=== PATIENT | female | born 1970 | race Caucasian/White ===

== ENCOUNTER 2019-06-15 06:47 | Day surgery (SDC) | payer BC ==
[2019-06-15] MEDS ORDERED: Lidocaine 1% PF 2 ML SDV INJECT ONE (07:46)
[2019-06-15] MEDS ORDERED: Lidocaine 2% 20 ML MDV INJECT ONE (08:01)
[2019-06-15] MEDS ORDERED: Lidocaine 1% with EPINEPHrine 1:100,000 50 ML MDV INJECT ONE (08:01)
[2019-06-15] MEDS ORDERED: ceFAZolin 2 GM in Sodium Chloride 0.9% 50 ML IV ONE (09:30)
[2019-06-15] MEDS ORDERED: fentaNYL 250 MCG/5 ML SDV ONE (09:34)
[2019-06-15] MEDS ORDERED: Succinylcholine 200 MG/10 ML MDV ONE (09:35)
[2019-06-15] MEDS ORDERED: Neostigmine Methylsulfate 1 MG/ML 5 ML Syringe ONE (09:35)
[2019-06-15] MEDS ORDERED: Propofol 200 MG/20 ML SDV ONE (09:35)
[2019-06-15] MEDS ORDERED: Ondansetron 4 MG/2 ML SDV ONE (09:35)
[2019-06-15] MEDS ORDERED: Rocuronium 50 MG/5 ML Vial ONE (09:35)
[2019-06-15] MEDS ORDERED: Glycopyrrolate 0.2 MG/ML 5 ML MDV ONE (09:35)
[2019-06-15] MEDS ORDERED: Lidocaine 1% 20 ML MDV INJECT ONE (10:49)
[2019-06-15] MEDS ORDERED: Isosulfan Blue 5 ML SDV ONE (11:15)
[2019-06-15] MEDS: Bupivacaine 0.5% 50 ML MDV ONE ×2 (12:04→12:50)
[2019-06-15] MEDS: Lidocaine 1% with EPINEPHrine 1:100,000 50 ML MDV ONE ×2 (12:05→12:50)
--- NOTE | 2019-06-15 12:41 | MY ---
Post Procedure Digital Lt SPECIMEN RADIOGRAPH CLINICAL HISTORY: Ductal carcinoma FINDINGS: Surgical specimen was submitted to radiology. The specimen contained the localization wire and the ultrasound biopsy marker in the central portion of the specimen. There is some spiculation identified in the central portion. This correlates with the preoperative tomosynthesis findings. IMPRESSION: Specimen contains the localization wire biopsy marker and spiculated lesion
--- NOTE | 2019-06-15 12:49 | MY ---
Guide Ndl Wire Loc LT CLINICAL HISTORY: Left breast carcinoma FINDINGS: Tomosynthesis images obtained prior to the procedure to corroborate the ultrasound biopsy marker with the described architectural distortion. The left breast was then placed in the mammography unit using the localizer grid. Medial breast was radiographed with a craniocaudal projection. The biopsy marker was localized in the central portion of the fenestration. Skin was then prepped. A Kopan localization needle was then passed from a cranial to caudal approach using the coordinates of the biopsy marker. Single cc view showed the needle to be on track. It was advanced an additional 2 cm. An ML view was then performed showing the needle tip to be just posterior and beyond the biopsy marker. The wire was then advanced and the needle was removed. Two-view mammogram shows the localization thick portion of the wire to be contiguous to the biopsy marker in the area of spiculation. At that time the ultrasound guided wire was marked with "NOT this wire". Dr. Padilla was contacted and the case was reviewed prior to lumpectomy. IMPRESSION: Successful mammographic localization wire placement from the cranial approach.
--- NOTE | 2019-06-15 14:01 | OR ---
DATE OF PROCEDURE: 06/15/2019 SURGEON: Ben Padilla MD PROCEDURE: Injection of technetium-99m, left breast for sentinel node detection. COMPLICATIONS: None. VOTATOR MACHINE OPERATOR: None. RISKS: Risks, benefits, alternatives, and limitations including, but not limited to infection, bleeding, and allergic reaction were explained to the patient who wished to proceed. PROCEDURE IN DETAIL: In the nuclear medicine suite, the patient was placed in a supine position. The left breast was identified, prepped and draped. The technetium-99m was injected in 3 aliquots subdermal/subcutaneous and periareolar area. This was then massaged to facilitate lymphatic uptake. Dressings were applied. The patient tolerated the procedure well. Ben Padilla MD /[id number]
--- NOTE | 2019-06-15 14:02 | MY ---
ULTRASOUND GUIDED LOCALIZATION WIRE PLACEMENT ATTEMPT CLINICAL HISTORY: Left medial breast lesion FINDINGS: Initial ultrasound scanning shows a ill-defined hypoechoic focus in the medial right breast. A Kopan localizing wire was placed from the inferior approach contiguous to the hypoechoic nodule. Postprocedure mammogram showed the localizing wire to be medial but inferior to the ultrasound-guided biopsy marker was performed April 29, 2019 Was decided that a localization wire be placed by mammographic guidance from the cranial approach. The wire placed by ultrasound guidance was labeled prior to the patient going to the OR. IMPRESSION: Localization attempt by ultrasound guidance. The wire was not felt to be close enough in proximity to the biopsy marker and nodule. It was labeled and then removed in the OR. This process was discussed with Dr. Padilla prior to surgery
[2019-06-15] MEDS: Sodium Chloride 0.9% 1,000 ML IV SCH ×2 (14:04→22:56)
[2019-06-15] MEDS ORDERED: diphenhydrAMINE 50 MG/ML SDV IVPUSH PRN (14:47)
[2019-06-15] MEDS ORDERED: Ondansetron 4 MG Tab.DIS PO PRN (14:47)
[2019-06-15] MEDS ORDERED: hydrOXYzine HCL 100 MG/2 ML SDV IM PRN (14:47)
[2019-06-15] MEDS ORDERED: fentaNYL 100 MCG/2 ML SDV IVPUSH PRN ×2 (14:47)
[2019-06-15] MEDS ORDERED: Promethazine 25 MG/ML SDV IM PRN (14:47)
[2019-06-15] MEDS ORDERED: Benzocaine/Cetylpyridinium/Menthol Lozenge MUCMEM PRN (14:47)
[2019-06-15] MEDS ORDERED: Ondansetron 4 MG/2 ML SDV IVPUSH PRN (14:47)
[2019-06-15] MEDS ORDERED: Acetaminophen/HYDROcodone 325-5 MG Tab PO PRN (14:47)
--- NOTE | 2019-06-15 15:18 | US ---
Inferior approach to the right the medial breast nodule was performed but two-view mammogram showed the localization wire to be too far away from the target lesion. Mammographic guidance was used for wire placement See report
--- NOTE | 2019-06-15 15:31 | OR ---
DATE OF PROCEDURE: 06/15/2019 SURGEON: Ben Padilla MD PROCEDURE PERFORMED: Injection of Lymphazurin blue, left breast, for identification of axillary nodes (55896). COMPLICATIONS: None. ANIMAL SCIENCE PROFESSOR: None. RISKS: Risks, benefits, alternatives, and limitations including, but not limited to" infection, bleeding, false-positive, false-negatives, allergic reactions, and other risks not listed here were explained to the patient, who wished to proceed. PROCEDURE IN DETAIL: The patient was placed in supine position. The left breast was prepped and draped. Lymphazurin blue a total of 4 mL injected in 3 separate wheals in a periareolar fashion. This was always drawn back to ensure non-intravascular injection. This was then injected and the breast was gently massaged to move the lymphatics. The patient tolerated the procedure well. Ben Padilla MD /[id number]
[2019-06-15] MEDS: Ketorolac 30 MG/ML SDV IM SCH (16:19)
[2019-06-15] MEDS: ceFAZolin 2 GM in Sodium Chloride 0.9% 50 ML IV SCH (20:26)
[2019-06-15] MEDS: Acetaminophen/HYDROcodone 325-5 MG Tab PO PRN (22:06)
[2019-06-16] MEDS: Ketorolac 30 MG/ML SDV IM SCH ×3 (01:19→10:48)
[2019-06-16] MEDS: ceFAZolin 2 GM in Sodium Chloride 0.9% 50 ML IV SCH (05:09)
[2019-06-16] MEDS: Acetaminophen/HYDROcodone 325-5 MG Tab PO PRN (05:14)
--- NOTE | 2019-06-16 08:50 | OR ---
DATE OF PROCEDURE: 06/15/2019 SURGEON: Ben Padilla MD PROCEDURES: 1. Left breast mastectomy (). 2. Excision, inferior margin mastectomy (). 3. Brainard node identification and excision, deep (38913). FINDINGS: 1. Benign sentinel lymph node. 2. Properly identified breast mass with surgical marker identified on mammogram intraoperatively. COMPLICATION: None. MARKETING PRODUCER: None. ANESTHESIA: General/local. INDICATIONS: This is a pleasant 48-year-old female with breast cancer of the left breast. She was counseled on risks, benefits, alternatives, and limitations including, but not limited to infection, bleeding, false positives and false negatives, mastectomy versus lumpectomy requiring radiation and other discussions not listed here. PROCEDURE IN DETAIL: The patient was placed in supine position. The sentinel node would be identified first. Using the gamma probe, over the left axilla, the most highly radioactive area was identified and a transverse incision was made along the pectoralis line. This was then carried down to the fascia, which was opened. The sentinel node would be identified very quickly. This was identified, clipped, and subsequently transected. This had a gamma reading of 853. This was also dark blue. Ex Vivo, this was also greater than 800. Typically, there is more than one lymph node; however, the background radiation was less than 1%, closer to 0, with only a small amount of scatter. No evident blue nodes were noted. Therefore, this was only one node that could be identified. This was then left open and packed, which would then be returned to later on. No evidence of bleeding. Irrigated and closed with 3-0 Vicryl and 4-0 Vicryl interrupted running fashion. The axillary mass, which was located with the wire previously, was addressed by a curvilinear incision of the left breast medial to the nipple. This was then carried down. The wire was identified and clipped using intraoperative fluoroscopy. This was then surrounded and excised. A single stitch was placed superior, double stitches were placed lateral, and triple stitches placed anteriorly. Because of the concern of the inferior margin on this, a second specimen would be removed and essentially a second lumpectomy performed. This was excised down to the fascial muscle plane and was stitched prior to removal with a single stitch superior, double stitch placed lateral, and a purple stitch on the anterior aspect. This was then removed and sent for specimen too. Minimal bleeding was controlled by electrocautery. A 7 flat drain was placed. The breast was closed with 3-0 Vicryl and 4-0 Vicryl interrupted running fashion. Dermabond was applied. The patient tolerated the procedure well. Ben Padilla MD /[id number]
[2019-06-16] MEDS ORDERED: Enoxaparin 40 MG/0.4 ML Syringe SUBCUT SCH (09:00)
--- NOTE | 2019-06-16 12:20 | PN ---
DATE OF SERVICE: 06/16/2019 SUBJECTIVE: The patient is doing well today. Pain is well controlled. No nausea, vomiting, shortness of breath, or chest pain. Dressings are intact. OBJECTIVE: VITAL SIGNS: Stable. CARDIOVASCULAR: Regular rhythm and rate. RESPIRATORY: Lungs clear to auscultation bilaterally. Dressings are intact. ASSESSMENT: Status post lumpectomy, left; sentinel node removal. PLAN: The patient will be discharged today. Please see discharge summary for further details. Ben Padilla MD /[id number]
--- NOTE | 2019-06-16 12:28 | DISCH ---
DISCHARGE DIAGNOSIS: Status post left breast lumpectomy and sentinel lymph node excision. SUMMARY OF HOSPITAL COURSE: This is a pleasant 48-year-old female who is a postoperative #1 aforementioned procedure. The patient did very well overnight. Pain is well controlled. No nausea, vomiting, shortness of breath, or chest pain. No fevers or chills. SERVANDO output is serosanguinous and as to be expected. FOLLOWUP: With Surgery in 7 to 14 days. ACTIVITY: No lifting greater than 30 pounds x30 days. DISCHARGE MEDICATIONS: Please see MAR, but includes Ethel as secondary pain medication, ibuprofen being the primary. CONSULTATIONS DURING THIS HOSPITALIZATION: Physical Therapy.
--- NOTE | 2019-06-22 09:15 | NM ---
Lymphoscintigraphy CLINICAL HISTORY: Breast carcinoma PROCEDURE: 1.55 mCi of technetium 99 sulfur colloid was injected in the periareolar subcuticular region of the left breast in the periauricular area [address] Padilla[address] Left upper chest scintigraphy was performed. There star*artifact in the periareolar region of the initial injection. There is a nodular focus in the left axilla consistent with sentinel node. IMPRESSION: Left breast lymphoscintigraphy for sentinel node identification
== END 2019-06-16 11:40 | disposition home or self-care (01) ==
LOC: JP.SDS 06:47 → JP.MS 14:00 → JP.SDS 06-16 11:40
PROVIDERS: ATTEND Surgery
DX: C50.312 Malignant neoplasm of lower-inner quadrant of left female breast (principal); E10.9 Type 1 diabetes mellitus without complications; E03.9 Hypothyroidism, unspecified; K21.9 Gastro-esophageal reflux disease without esophagitis; Z88.5 Allergy status to narcotic agent; Z88.2 Allergy status to sulfonamides; Z87.891 Personal history of nicotine dependence; Z79.4 Long term (current) use of insulin; Z79.899 Other long term (current) drug therapy
CPT/HCPCS: 19281; 19301; 36415; 38525; 38790; 38792; 76000; 76098; 76942; 77065; 78195; 80048; 81025; 85025; 86850; 86900; 86901; 88307; 88331; 88341; 88342; 97161; 97535; A9270; A9541; J0330; J0690; J1650; J2001; J2405; J2704; J2710; J3010; J3490; J7030; J7050; Q9968

== ENCOUNTER 2019-06-26 12:40 | Day surgery (SDC) | payer BC ==
[~2019-06-26 12:40] MED LIST: Midazolam 1 MG/ML 2 ML SDV ONE; Propofol 200 MG/20 ML SDV ONE; fentaNYL 100 MCG/2 ML SDV ONE
[2019-06-26] MEDS ORDERED: Sodium Chloride 0.9% 1,000 ML IV SCH (13:00)
[2019-06-26] MEDS ORDERED: Bupivacaine 0.5% 50 ML MDV ONE (13:05)
[2019-06-26] MEDS ORDERED: ceFAZolin 2 GM in Premix Bag 1 BAG IV ONE (13:15)
[2019-06-26] MEDS ORDERED: Dextrose 5%-Lactated Ringers 1,000 ML IV SCH (13:45)
[2019-06-26] MEDS ORDERED: Lidocaine 1% with EPINEPHrine 1:100,000 50 ML MDV INJECT ONE ×2 (14:23)
[2019-06-26] MEDS ORDERED: Propofol 200 MG/20 ML SDV ONE (14:27)
--- NOTE | 2019-06-26 15:23 | CRLCR ---
Indication: Port-A-Cath placement Technique: Chest 1 view Comparison: None. Findings/Impression: Cardiovascular and mediastinum: Right side port catheter has been placed with the distal tip at the junction of the SVC and right subclavian vein. Heart size and pulmonary vasculature are normal. Lungs and pleural space: Lungs are clear. No sign of infiltrate or mass. No sign of pleural effusion. No pneumothorax. Bones and soft tissues: No acute findings. Dictated by Joel Garcia MD @ Jun 26 2019 3:19PM Signed by Dr. Joel Garcia @ Jun 26 2019 3:20PM
[2019-06-26] MEDS ORDERED: Sodium Chloride 0.9% 500 ML ONE (15:29)
--- NOTE | 2019-06-29 08:42 | OR ---
DATE OF PROCEDURE: 06/26/2019 SURGEON: Ben Padilla MD PROCEDURE: Port-A-Cath placement, right subclavian vein. COMPLICATIONS: None. HIGH SCHOOL HVAC R INSTRUCTOR: None. ANESTHESIA: MAC. PREOPERATIVE DIAGNOSIS: Breast cancer. POSTOPERATIVE DIAGNOSIS: Breast cancer. RISKS: Risks, benefits, alternatives, and limitations including, but not limited to infection, bleeding, and injury to lungs, such as pneumothorax, and other risks not listed here were explained to the patient, who wished to proceed. PROCEDURE IN DETAIL: The patient was placed in supine position. A single stick was created on the left side, however, due to the concern of the radiation postoperatively, this was then switched to the right side. This was performed by micropuncture needle kit. It was then exchanged for a 35,000th wire and then exchanged for a 7-Czech sheath. Dark blood was noted. The dilator was then introduced under direct visualization after a pocket was created and anesthetized with lidocaine. The pocket was created with Metzenbaum scissors. The tubing was then cut and placed to the Port-A-Cath without problems. This was then secured in three locations. The Murphy needle was used to aspirate and inject into the port without difficulty. The subcutaneous fat was then closed with 3-0 Vicryl and skin was closed with 4-0 Vicryl. Dressings were applied. The patient tolerated the procedure well. Ben Padilla MD /[id number]
== END 2019-06-26 15:45 | disposition home or self-care (01) ==
LOC: JP.SDS 12:40
PROVIDERS: ATTEND Surgery
DX: C50.919 Malignant neoplasm of unspecified site of unspecified female breast (principal); E11.9 Type 2 diabetes mellitus without complications; Z88.2 Allergy status to sulfonamides
CPT/HCPCS: 36415; 71045; 80048; 81025; 85027; C1788; C1894; J0690; J1642; J2250; J2704; J3010; J3490; J7030; J7040; J7121

== ENCOUNTER 2019-07-18 06:32 | Day surgery (SDC) | payer BC ==
[2019-07-18] MEDS ORDERED: Lactated Ringers 1,000 ML IV SCH (07:00)
[2019-07-18] MEDS ORDERED: ceFAZolin 2 GM in Sodium Chloride 0.9% 100 ML IV ONE (07:30)
[2019-07-18] MEDS ORDERED: ceFAZolin 2 GM in Premix Bag 1 BAG IV ONE (07:30)
[2019-07-18] MEDS ORDERED: Lidocaine 1% with EPINEPHrine 1:100,000 50 ML MDV ONE (07:42)
[2019-07-18] MEDS ORDERED: Bupivacaine 0.5% 50 ML MDV ONE (07:42)
[2019-07-18] MEDS ORDERED: Propofol 200 MG/20 ML SDV ONE (08:15)
--- NOTE | 2019-07-27 10:34 | OR ---
DATE OF PROCEDURE: 07/18/2019 SURGEON: Jose Bruno MD PREOPERATIVE DIAGNOSIS: Status post port placement. POSTOPERATIVE DIAGNOSIS: Status post port placement. OPERATIVE PROCEDURE: Removal of Bard port ([id number]). ANESTHESIA: Local plus IV sedation. INDICATION FOR PROCEDURE: This is a 48-year-old recently diagnosed with breast cancer. Initially, it was thought she would need adjuvant chemotherapy, this subsequently changed, and at this point, the patient is not anticipating needing any IV chemotherapy, and the port is to be removed. Potential risks including bleeding and infection were reviewed, and the patient wishes to proceed. DETAILS OF PROCEDURE: The patient was taken to the operating room, placed in supine position. IV sedation was administered, after which the upper chest and neck areas were prepped and draped. Port was located in the right infraclavicular area, and over the port, the skin and subcutaneous tissue were anesthetized with 1% lidocaine mixed with Marcaine and previously a transverse incision was made and carried down through the skin and subcutaneous tissue. The attachments of the port were then sequentially divided with sharp dissection, and once these were freed up, a pursestring stitch of 3-0 Vicryl stitch was placed around the point where the port exited the pocket and the catheter was then withdrawn as this suture was tied up to prevent bleeding and air embolism. Incision was then closed with 3-0 and 4-0 Vicryl stitch deep and a 4-0 Vicryl subcuticular stitch. Dressing was applied, and the patient was taken to the recovery room in satisfactory condition. There were no evident complications. Jose Bruno MD /[id number]
== END 2019-07-18 09:43 | disposition home or self-care (01) ==
LOC: JP.SDS 06:32
PROVIDERS: ATTEND Surgery
DX: Z45.2 Encounter for adjustment and management of vascular access device (principal); C50.919 Malignant neoplasm of unspecified site of unspecified female breast
CPT/HCPCS: J0690; J2250; J2704; J3010; J3490; J7120

== ENCOUNTER 2021-07-07 07:41 | Day surgery (SDC) | payer BC ==
[2021-07-07 08:28] LABS: CORONAVIRUS COVID-19 NAA NEGATIVE (NEGATIVE)
[2021-07-07] MEDS ORDERED: Sodium Chloride 0.9% 1,000 ML IV SCH (08:45)
== END 2021-07-07 10:39 | disposition home or self-care (01) ==
LOC: JP.SDS 07:41
PROVIDERS: ATTEND Surgery
DX: Z12.11 Encounter for screening for malignant neoplasm of colon (principal); K21.9 Gastro-esophageal reflux disease without esophagitis; E10.9 Type 1 diabetes mellitus without complications; E66.9 Obesity, unspecified; Z88.8 Allergy status to other drugs, medicaments and biological substances; Z87.891 Personal history of nicotine dependence; Z01.812 Encounter for preprocedural laboratory examination; Z20.822 Contact with and (suspected) exposure to COVID-19; Z68.27 Body mass index [BMI] 27.0-27.9, adult
CPT/HCPCS: 0241U; 45378; J2250; J2704; J3010; J7030